=== PATIENT | female | born 2000 | race Caucasian/White ===

== ENCOUNTER 2022-05-09 16:29 | Emergency (ER) | payer OTHER, SELFPAY ==
[2022-05-09 16:50] VITALS: BP 126/78; PULSE 83; RESP 20; TEMP 37; O2SAT 98; BMI 25.1
--- NOTE | 2022-05-09 17:23 | CRLHL7_ITS ---
For Patients: As a result of the Cures Act, medical imaging exams and procedure reports are released immediately into your electronic medical record. You may view this report before your referring provider. If you have questions, please contact your health care provider. Indication: Injury Technique: Three views Comparison: None Findings: Bones: 1 millimeter ossific densities adjacent to the medial malleolus suspicious for minimal avulsion fragments. Joint spaces: Unremarkable. Soft tissues: Soft tissue swelling, greater laterally. Dictated by Gal Ayers MD @ 05/09/2022 5:47:56 PM (Electronically Signed)
--- NOTE | 2022-05-09 17:56 | ED_ITS ---
HPI - Extremity Injury (Lower) General Chief Complaint: Extremity Pain/Injury, Lower Stated Complaint: Fall Ankle Injury Time Seen by Provider: 05/09/22 16:32 History of Present Illness HPI Narrative: This 22-year-old female comes in with an injury to her right ankle. She was doing some rock climbing and twisted her ankle. She has pain on the medial and lateral aspect of the right ankle with swelling over the lateral malleolus. She has not ambulated on this leg since the fall. She does not report any other injury. She did not hit her head or have loss of consciousness. Related Data Home Medications Medication Instructions Recorded Confirmed albuterol 05/09/22 Previous Rx's Medication Instructions Recorded Crutches- Adult #1 ea 05/09/22 ketorolac 10 mg tablet 10 mg PO Q8H 5 days #15 tabs 05/09/22 Allergies Allergy/AdvReac Type Severity Reaction Status Date / Time No Known Drug Allergies Allergy Verified 05/09/22 16:55 Review of Systems Status of ROS: Reports: 10 or more systems reviewed and unremarkable except as noted in History and below Narrative: Constitutional: No fevers, no weight gain or loss. Eyes: No discharge. No vision changes. HENT: No congestion, no sore throat, no ear pain. Cardiovascular: No chest pain, no palpitations. Respiratory: No shortness of breath, no wheezes, no cough. Gastrointestinal: No abdominal pain, no vomiting, no diarrhea. Genitourinary: No dysuria, no hematuria. Musculoskeletal: Right ankle injury as described above. Skin: No rashes, no pruritis. Neurological: No dizziness, weakness, sensory change, speech change. Endo/Heme/Allergies: No bruising or bleeding. No polydipsia. Pysch: no suicidality, no anxiety, no insomnia. All other systems reviewed and are negative. PFSH PFSH Social History Smoking Status: Never smoker Do you use any of these nicotine containing products: None How often do you have a drink containing alcohol: 2-4 times a month How many standard drinks containing alcohol do you have on a typical day: 3 or 4 How often do you have six or more drinks on one occasion: Less than monthly AUDIT-C Alcohol total score: 4 Non-prescribed substance use: marijuana (any form) Non-prescribed substance use details: edibles occasionally service: No Exam Narrative: Exam Narrative: Constitutional: Well-developed, well-nourished, no acute distress. HEENT: Normocephalic, atraumatic. Neck: Normal range of motion. Nontender. Supple. Heart: Intact distal pulses. Lungs: No chest discomfort. No wheezes, rhonchi, or rales. Abdomen: Nontender. Back: Normal range of motion. Extremities: Normal range of motion. Swelling over the lateral malleolus of the right ankle. No ligament instability or joint effusion. No skin injury. Skin: Intact. No rash. Warm. No erythema or pallor. Neurologic: No altered sensation. No weakness. Alert and oriented. Psychiatric: No suicidality. No anxiety or depression. No insomnia. Nursing notes and vitals signs are reviewed. Const: Vital Signs, click to edit/add: Vital Signs - 24 hr 05/09/22 16:50 Temperature 98.6 F Pulse Rate [Pulse Oximeter] 83 Respiratory Rate 20 Blood Pressure [Le ft Upper Arm] 126/78 Pulse Oximetry 98 Oxygen Delivery Me thod Room Air Course Vital Signs Vital signs: Initial Vital Signs Temperature 98.6 F 05/09/22 16:50 Temperature Source Temporal Artery Scan 05/09/22 16:50 Pulse Rate 83 05/09/22 16:50 Respiratory Rate 20 05/09/22 16:50 Blood Pressure 126/78 05/09/22 16:50 Blood Pressure Mean 94 05/09/22 16:50 Blood Pressure Position Supine 05/09/22 16:50 Pulse Oximetry 98 05/09/22 16:50 Oxygen Delivery Method 05/09/22 16:50 Vital Signs Temperature 98.6 F 05/09/22 16:50 Pulse Rate 83 05/09/22 16:50 Respiratory Rate 20 05/09/22 16:50 Blood Pressure 126/78 05/09/22 16:50 Pulse Oximetry 98 05/09/22 16:50 Oxygen Delivery Method 05/09/22 16:50 Temperature 98.6 F 05/09/22 16:50 Pulse Rate 83 05/09/22 16:50 Respiratory Rate 20 05/09/22 16:50 Blood Pressure 126/78 05/09/22 16:50 Pulse Oximetry 98 05/09/22 16:50 Oxygen Delivery Method 05/09/22 16:50 MDM - Extremity Injury (Lower) MDM Narrative Medical decision making narrative: This patient comes in with an injury to her right ankle. X-ray imaging shows no obvious sign of fracture. There is some very small findings of lucency inferior her to the medial malleolus that may represent an avulsion. Patient received an Obey wrap and was fitted for crutches. She did receive Tylenol 1000 mg. I also prescribed Toradol for ongoing pain management. I encouraged her to increase activity as tolerated. Imaging Data XR Right Ankle: Attestation: I have reviewed the pertinent imaging results. Radiologist's impression: indings: Bones: 1 millimeter ossific densities adjacent to the medial malleolus suspicious for minimal avulsion fragments. Joint spaces: Unremarkable. Discharge Plan Discharge Clinical Impression: Ankle sprain and strain Patient Disposition: Home, Self-Care Condition: Unchanged Additional Instructions: Use crutches as needed and increase activity as tolerated. Use medication also as needed and directed. Follow up with MD or return if worsening. Prescriptions: New (DME) Crutches- Adult Misc See Rx Instructions .ROUTE .MEDSUPPLY Qty: 1 0RF Rx Instructions: As directed ketorolac 10 mg tablet 10 mg PO Q8H 5 Days Qty: 15 0RF No Action albuterol Follow Up/Referrals: Provider,Not a Local [Primary Care Provider] - Stand Alone Forms: [facility] Info Instructions
[2022-05-09] MEDS: ACETAMINOPHEN 500 MG TABLET 1000 MG PO (18:55)
== END 2022-05-09 19:05 | disposition home or self-care (01) ==
PROVIDERS: Emergency Provider Emergency Medicine Emergency Medical Services
DX: S93.401A Sprain of unspecified ligament of right ankle, initial encounter (principal); X50.1XXA Overexertion from prolonged static or awkward postures, initial encounter; Y93.31 Activity, mountain climbing, rock climbing and wall climbing
CPT/HCPCS: 73610; 99283; 99284; A9270